=== PATIENT | male | born 1950 | race African-American/Black ===

== ENCOUNTER → 2017-07-10 | Day surgery (SDC) | payer MEDICARE ==
[~2017-07-10] MED LIST: LIDOCAINE 1% PF 2 ML VIAL. ID; MIDAZOLAM HCL/PF 2 MG/2 ML VIAL. IV; PROPOFOL 20 ML IV; fentaNYL PF VIAL 100 MCG/2 ML VIAL IV
[2017-07-10] MEDS: IV RINGERS,LACTATED 1000ML 1,000 ML IV (08:18)
== END | disposition home or self-care (01) ==
LOC: SURG 07:55
DX: K21.0 Gastro-esophageal reflux disease with esophagitis (principal); K29.50 Unspecified chronic gastritis without bleeding; I10 Essential (primary) hypertension; E78.00 Pure hypercholesterolemia, unspecified; M19.90 Unspecified osteoarthritis, unspecified site; G47.30 Sleep apnea, unspecified; E66.9 Obesity, unspecified; M10.9 Gout, unspecified; Z98.890 Other specified postprocedural states; Z79.82 Long term (current) use of aspirin; Z79.899 Other long term (current) drug therapy; Z90.49 Acquired absence of other specified parts of digestive tract; Z86.010 Personal history of colon polyps
CPT/HCPCS: 43239; 88305; J2704

== ENCOUNTER → 2019-08-03 | Outpatient (CLI) | payer MEDICARE ==
[2017-07-10 09:37] VITALS: BP 119/65
[~2019-08-03] MED LIST changes: +AMLO5TAB10 PO; +ASPI-630 PO; -LIDOCAINE 1% PF 2 ML VIAL. ID; +LOSA1TAB22 PO; -MIDAZOLAM HCL/PF 2 MG/2 ML VIAL. IV; +OMEP20CA16 PO; -PROPOFOL 20 ML IV; +SILD100T PO; +SIMV20TA18 PO; -fentaNYL PF VIAL 100 MCG/2 ML VIAL IV
== END | disposition home or self-care (01) ==
LOC: LAB 13:49
PROVIDERS: ATTEND Internal Medicine Gastroenterology
DX: Z11.59 Encounter for screening for other viral diseases (principal); Z86.010 Personal history of colon polyps
CPT/HCPCS: 36415; U0003-CS

== ENCOUNTER → 2019-08-06 | Day surgery (SDC) | payer MEDICARE ==
[~2019-08-06] MED LIST changes: +HYDROmorphone 2 MG/ML VIAL IV PRN; +IV RINGERS,LACTATED 1000ML 1,000 ML IV SCH; +MORPHINE SULFATE 2 MG/ML VIAL. IV PRN; +ONDANSETRON PF 4 MG/2 ML VIAL. IV PRN; +PROCHLORPERAZINE 10 MG/2 ML VIAL. IV PRN; +PROPOFOL 10 MG/ML (20ML) VIAL. IV ONE; +fentaNYL PF VIAL 100 MCG/2 ML VIAL IV PRN
--- NOTE | 2019-08-06 12:44 | HP ---
ADMIT DATE: 08/06/2019 REFERRING PHYSICIAN: Dr. Janes Duggan. REASON FOR CONSULTATION: History of colon polyps and reflux. HISTORY OF PRESENT ILLNESS: A 69-year-old -[place]uran male whose past medical history is significant for hypertension, gastroesophageal reflux disease, hyperlipidemia, seen for screening colon with history of colonic polyps. Bowel habits are regular without diarrhea or constipation. There has been no melena or hematochezia. In addition, he has had persistent heartburn. EGD is recommended to assess for interval development of Zamarripa's and/or stricture. The patient is otherwise without additional complaints. PAST MEDICAL HISTORY: GERD, sleep apnea, hyperlipidemia, history of colonic polyps, hypertension, distal history of Zamarripa's. ALLERGIES: None. MEDICATIONS: Include amlodipine, aspirin, losartan, omeprazole, Viagra, and simvastatin. FAMILY AND SOCIAL HISTORY: He is a social drinker, nonsmoker. PAST SURGICAL HISTORY: Status post tonsillectomy, appendectomy. REVIEW OF SYSTEMS: Per records. PHYSICAL EXAMINATION: GENERAL: Reveals a well-nourished, well-developed -Honduran male who is alert, cooperative, in no acute distress. VITAL SIGNS: Temperature 97.8, pulse 64, respirations 20. LUNGS: Clear. CARDIOVASCULAR: Reveals an S1, S2 without S3, S4 or appreciable murmur. ABDOMEN: Reveals a soft abdomen, normal bowel sounds, without appreciable hepatosplenomegaly. EXTREMITIES: Have no cyanosis, clubbing, edema. IMPRESSION AND PLAN: 1. History of colonic polyps. Surveillance exam is recommended at this time. Risks and benefits of procedure including risk of hemorrhage and perforation have been discussed. The patient is willing to proceed. 2. History of Zamarripa's with reflux. Interval endoscopy to reassess is recommended. Risks and benefits were discussed. The patient is willing to proceed. YESSICA JUAREZ MD DR: MELCHOR/ari JOB#: [id number] / [id number]
[2019-08-06 12:54] VITALS: BP 121/69
--- NOTE | 2019-08-07 21:05 | PATHOLOGY ---
[facility] Accession Number: [id number] . 01 Material submitted: . esophagus - DISTAL ESOPHAGUS BIOPSY. Modifiers: distal . 01 Clinical history: . GERD, history of polyp. . 02 Diagnosis: Esophageal biopsies, distal esophagus: - Reflux esophagitis. LBQ 08/07/2019 1553 Local . 02 Comment: Sections of the distal esophageal biopsy reveal segments of tangentially oriented, hyperplastic squamous esophageal mucosa showing focal intraepithelial chronic inflammatory cells. The findings are consistent with reflux esophagitis. There is no evidence of Zamarripa's change, dysplasia, or malignancy. (JPM/db; 08/07/2019) . 02 Electronically signed: . Milo Cline MD, Pathologist NPI- [id number] . 01 Gross description: . Received in formalin labeled "Mack Black, distal esophagus BX reflux rule out Zamarripa's" is a 1.0 x 0.2 x 0.1 cm aggregate of fraire-brown soft tissue fragments. The specimen is submitted entirely in A1. ([facility]; 08/06/2019) [facility] 08/06/2019 1944 Local . 02 Pathologist provided ICD-10: K21.0 . 02 CPT . 025543 Specimen Comment: A courtesy copy of this report has been sent to [phone] Specimen Comment: [id number] Specimen Comment: Report sent to / DR MATSON Performed at: 01 [facility] [address], [place] [id number] MD Rock Walls MD Phone: [phone] Performed at: 02 [facility] [address] [place], [place] [id number] MD Milo Cline MD Phone: [phone]
== END ==
LOC: ENDOS 11:13
PROVIDERS: ATTEND Internal Medicine Gastroenterology
DX: Z12.11 Encounter for screening for malignant neoplasm of colon (principal); K57.30 Diverticulosis of large intestine without perforation or abscess without bleeding; K21.0 Gastro-esophageal reflux disease with esophagitis; K64.0 First degree hemorrhoids; K22.70 Barrett's esophagus without dysplasia; E78.00 Pure hypercholesterolemia, unspecified; I10 Essential (primary) hypertension; Z86.010 Personal history of colon polyps; Z72.89 Other problems related to lifestyle; Z98.890 Other specified postprocedural states
CPT/HCPCS: 43239; 88305; G0105; J2704; 45378

== ENCOUNTER → 2019-12-14 | Outpatient (CLI) | payer MEDICARE ==
[2019-08-06 12:54] VITALS: BP 121/69
[~2019-12-14] MED LIST changes: +AMLO-186 PO; -AMLO5TAB10 PO; -HYDROmorphone 2 MG/ML VIAL IV PRN; -IV RINGERS,LACTATED 1000ML 1,000 ML IV SCH; -MORPHINE SULFATE 2 MG/ML VIAL. IV PRN; -ONDANSETRON PF 4 MG/2 ML VIAL. IV PRN; -PROCHLORPERAZINE 10 MG/2 ML VIAL. IV PRN; -PROPOFOL 10 MG/ML (20ML) VIAL. IV ONE; -fentaNYL PF VIAL 100 MCG/2 ML VIAL IV PRN
--- NOTE | 2019-12-14 15:13 | KCIC ---
EXAMINATION: ANKLE LEFT 3V CLINICAL HISTORY: Left ankle pain x2-3 months, no known injury TECHNIQUE: ANKLE LEFT 3V Number of Images/Views: 3 COMPARISON: None FINDINGS: Minimal tibiotalar degenerative changes. No acute fracture. Small posterior calcaneal enthesophyte. Mild soft tissue swelling. Vascular calcifications. IMPRESSION: No acute osseous abnormality left ankle. Electronically signed by: Ben Mistry DO (12/14/2019 3:10 PM) [id number]
== END ==
LOC: KCIC 13:47
PROVIDERS: ATTEND Nurse Practitioner Gerontology
DX: M19.072 Primary osteoarthritis, left ankle and foot (principal); M79.89 Other specified soft tissue disorders; M77.32 Calcaneal spur, left foot
CPT/HCPCS: 73610

== ENCOUNTER → 2020-05-25 | Outpatient (CLI) | payer MEDICARE ==
[2019-08-06 12:54] VITALS: BP 121/69
== END ==
LOC: SLPLAB 19:02
PROVIDERS: ATTEND Internal Medicine Critical Care Medicine
DX: G47.33 Obstructive sleep apnea (adult) (pediatric) (principal)
CPT/HCPCS: 95810